=== PATIENT | female | born 1995 | race Asian ===

== ENCOUNTER 2018-05-15 02:18 | Emergency (ER) | payer OTHER ==
--- NOTE | 2018-05-15 02:22 | EDPHY ---
H & P Stated Complaint: AMS Source: Patient, Other Exam Limitations: Intoxication Time Seen by Provider: 05/15/18 02:21 HPI/ROS: HPI The patient presents with alcohol intoxication, brought in by a concerned friend. Patient was out with a group of friends drinking alcohol tonight in had multiple alcoholic beverages, friend is not sure how many. At 1 point in time she was away from the friend group and was with a male acquaintance. She had difficulty walking and began vomiting, thus a sober friend brought her to the emergency department. REVIEW OF SYSTEMS 10 systems were reviewed and negative with the exception of the elements mentioned in the history of present illness. PMHx: Healthy Soc Hx: Here with a friend, occasional alcohol use PHYSICAL General Appearance: Rouses to painful stimuli, vomitus in her hair Eyes: Pupils equal and round no pallor or injection ENT, Mouth: Mucous membranes moist Respiratory: There are no retractions, lungs are clear to auscultation Cardiovascular: Regular rate and rhythm Gastrointestinal: Abdomen is soft and non-tender, no masses, bowel sounds normal Neurological: Slurred speech, moves all extremities Skin: Warm and dry, no rashes Musculoskeletal: Neck is supple non tender Extremities: symmetrical, full range of motion Psychiatric: there is no agitation (Chely Pena) Constitutional: Initial Vital Signs Temperature (C) 36.0 C 05/15/18 02:36 Heart Rate 70 05/15/18 02:36 Respiratory Rate 17 05/15/18 02:36 Blood Pressure 108/68 05/15/18 02:36 O2 Sat (%) 93 05/15/18 02:36 O2 Delivery Mode Room Air O2 (L/minute) 2 Allergies/Adverse Reactions: No Known Allergies Allergy (Unverified 05/15/18 02:36) Home Medications: Medication Instructions Recorded NK [No Known Home Meds] 05/15/18 Medical Decision Making Differential Diagnosis: 22-year-old female presents with alcohol intoxication, brought in by a concerned friend after she had difficulty walking and vomited several times. She does not have any trauma. On exam, she does not have any focal neurologic deficits or external signs of trauma. Here, blood alcohol was checked and was quite elevated. She was monitored for several hours. She eventually became more clinically sober. Case was signed out at 7:[address] Pitt pending patient's sobriety inability to walk. I have considered closed head injury though I feel this is unlikely given no external signs of trauma. I have considered polysubstance ingestion as well though given her friends report, I feel alcohol intoxication is the most likely cause of her symptoms. (Chely Pena) Other Provider: Patient signed out to me at 0700. On re-evaluation at 0745, patient is awake, ambulatory without assistance, has normal vitals and is drinking water out of a cup. She has called a sober ride. I think she is safe for discharge. ( Michael Pitt) - Data Points Laboratory Results: 05/15/18 02:30 Ethyl Alcohol 321 mg/dL H mg/dL (0-10) Medications Given: Discontinued Medications Sodium Chloride (Ns) 1,000 mls @ 0 mls/hr IV EDNOW ONE; Wide Open PRN Reason: Protocol Stop: 05/15/18 03:37 Last Admin: 05/15/18 03:37 Dose: 1,000 mls Ondansetron HCl (Zofran) 4 mg IVP EDNOW ONE Stop: 05/15/18 02:26 Last Admin: 05/15/18 02:35 Dose: 4 mg Ondansetron HCl (Zofran) 4 mg IVP EDNOW ONE Stop: 05/15/18 03:37 Last Admin: 05/15/18 03:37 Dose: 4 mg Departure - Departure Disposition: Home, Routine, Self-Care Clinical Impression: Alcoholic intoxication Qualifiers: Complication of substance-induced condition: with delirium Qualified Code(s): F10.921 - Alcohol use, unspecified with intoxication delirium Vomiting Qualifiers: Vomiting type: unspecified Vomiting Intractability: non-intractable Nausea presence: with nausea Qualified Code(s): R11.2 - Nausea with vomiting, unspecified Condition: Good Instructions: At-Risk Alcohol Use (ED) Referrals: [facility],. [Clinic] - As per Instructions
[2018-05-15] MEDS ORDERED: ONDANSETRON 4 MG/2 ML VIAL IVP ONE ×2 (02:25→03:36)
[2018-05-15] MEDS ORDERED: ONDANSETRON 4 MG/2 ML VIAL ONE (03:31)
[2018-05-15] MEDS ORDERED: NS 1,000 ML IV ONE (03:36)
[2018-05-15 07:40] VITALS: BP 95/60
== END 2018-05-15 08:10 | disposition home or self-care (01) ==
DX: F10.921 Alcohol use, unspecified with intoxication delirium (principal); E86.9 Volume depletion, unspecified
CPT/HCPCS: 96374; G0480; J2405